=== PATIENT | male | born 1955 | race Caucasian/White ===

== ENCOUNTER 2017-10-15 08:38 | Day surgery (SDC) | payer BC ==
[~2017-10-15] VITALS: Ht 177.8 cm; Wt 125.0 kg
[2017-10-15 09:14] VITALS: BP 159/100; PULSE 52; TEMP 97.5
[2017-10-15] MEDS ORDERED: PREVACID 30MG30 M1 PO (09:43)
[2017-10-15] MEDS ORDERED: HCTZ12.5TAB PO (09:43)
[2017-10-15] MEDS ORDERED: D3-5050000 IU PO (09:44)
[2017-10-15] MEDS ORDERED: GLUCOPHAGE1000 MG PO (09:45)
[2017-10-15] MEDS ORDERED: BYSTOLIC10 MG PO (09:45)
[2017-10-15 10:33] VITALS: BP 131/80; PULSE 56; TEMP 97.6
[2017-10-15 10:45] VITALS: BP 129/103; PULSE 52
[2017-10-15 11:00] VITALS: BP 133/82; PULSE 48
== END 2017-10-15 11:10 | disposition home or self-care (01) ==
LOC: SDCO 08:38
DX: Z12.11 Encounter for screening for malignant neoplasm of colon (principal); K57.30 Diverticulosis of large intestine without perforation or abscess without bleeding; I10 Essential (primary) hypertension; K76.0 Fatty (change of) liver, not elsewhere classified; Z86.010 Personal history of colon polyps
CPT/HCPCS: J2250; J3010; J7030